=== PATIENT | female | born 1945 | race Caucasian/White ===

== ENCOUNTER → 2016-11-05 | Outpatient (CLI) | payer MEDICARE, OTHER | END | disposition home or self-care (01) | LOC: CFH 08:51 | PROVIDERS: ATTEND Nurse Practitioner Primary Care | DX: R05 Cough (principal); E78.2 Mixed hyperlipidemia; E03.9 Hypothyroidism, unspecified; I10 Essential (primary) hypertension; G89.29 Other chronic pain | CPT/HCPCS: 71250 ==

== ENCOUNTER → 2017-06-25 | Outpatient (CLI) | payer MEDICARE, OTHER | END | disposition home or self-care (01) | LOC: WOUND 07:44 | PROVIDERS: ATTEND Internal Medicine Infectious Disease | DX: T81.33XA Disruption of traumatic injury wound repair, initial encounter (principal); E03.9 Hypothyroidism, unspecified; G25.81 Restless legs syndrome; M15.0 Primary generalized (osteo)arthritis; J45.909 Unspecified asthma, uncomplicated; I10 Essential (primary) hypertension; E78.2 Mixed hyperlipidemia; G89.29 Other chronic pain; Y92.89 Other specified places as the place of occurrence of the external cause; Y83.8 Other surgical procedures as the cause of abnormal reaction of the patient, or of later complication, without mention of misadventure at the time of the procedure | CPT/HCPCS: G0463; WOU0463 ==

== ENCOUNTER → 2017-07-02 | Outpatient (CLI) | payer MEDICARE, OTHER | END | disposition home or self-care (01) | LOC: WOUND 08:25 | PROVIDERS: ATTEND Internal Medicine Infectious Disease | DX: T81.31XD Disruption of external operation (surgical) wound, not elsewhere classified, subsequent encounter (principal); E03.9 Hypothyroidism, unspecified; G25.81 Restless legs syndrome; M15.0 Primary generalized (osteo)arthritis; I10 Essential (primary) hypertension; E78.2 Mixed hyperlipidemia; G89.29 Other chronic pain; J45.909 Unspecified asthma, uncomplicated; Y83.8 Other surgical procedures as the cause of abnormal reaction of the patient, or of later complication, without mention of misadventure at the time of the procedure | CPT/HCPCS: 15275; Q4132 ==

== ENCOUNTER → 2017-07-16 | Outpatient (CLI) | payer MEDICARE, OTHER | END | disposition home or self-care (01) | LOC: WOUND 09:00 | PROVIDERS: ATTEND Nurse Practitioner Family | DX: T81.31XD Disruption of external operation (surgical) wound, not elsewhere classified, subsequent encounter (principal); E03.9 Hypothyroidism, unspecified; G25.81 Restless legs syndrome; M15.0 Primary generalized (osteo)arthritis; D83.2 Common variable immunodeficiency with autoantibodies to B- or T-cells; E78.2 Mixed hyperlipidemia; G89.29 Other chronic pain; J45.909 Unspecified asthma, uncomplicated; I10 Essential (primary) hypertension; Y83.8 Other surgical procedures as the cause of abnormal reaction of the patient, or of later complication, without mention of misadventure at the time of the procedure | CPT/HCPCS: 15275; Q4132 ==

== ENCOUNTER → 2017-07-30 | Outpatient (CLI) | payer MEDICARE, OTHER | END | disposition home or self-care (01) | LOC: WOUND 08:47 | PROVIDERS: ATTEND Internal Medicine Infectious Disease | DX: T86.828 Other complications of skin graft (allograft) (autograft) (principal); D83.2 Common variable immunodeficiency with autoantibodies to B- or T-cells; E03.9 Hypothyroidism, unspecified; E78.2 Mixed hyperlipidemia; G25.81 Restless legs syndrome; G89.29 Other chronic pain; I10 Essential (primary) hypertension; J45.909 Unspecified asthma, uncomplicated; M15.0 Primary generalized (osteo)arthritis; Z98.49 Cataract extraction status, unspecified eye; Z90.49 Acquired absence of other specified parts of digestive tract; Z87.891 Personal history of nicotine dependence; Y83.2 Surgical operation with anastomosis, bypass or graft as the cause of abnormal reaction of the patient, or of later complication, without mention of misadventure at the time of the procedure | CPT/HCPCS: 15275; Q4172 ==

== ENCOUNTER → 2017-08-06 | Outpatient (CLI) | payer MEDICARE, OTHER | END | disposition home or self-care (01) | LOC: WOUND 13:24 | PROVIDERS: ATTEND Nurse Practitioner Family | DX: T81.31XD Disruption of external operation (surgical) wound, not elsewhere classified, subsequent encounter (principal); E03.9 Hypothyroidism, unspecified; G25.81 Restless legs syndrome; M15.0 Primary generalized (osteo)arthritis; D83.2 Common variable immunodeficiency with autoantibodies to B- or T-cells; I10 Essential (primary) hypertension; E78.2 Mixed hyperlipidemia; G89.29 Other chronic pain; J45.909 Unspecified asthma, uncomplicated; Z87.891 Personal history of nicotine dependence; Z90.49 Acquired absence of other specified parts of digestive tract; Y83.8 Other surgical procedures as the cause of abnormal reaction of the patient, or of later complication, without mention of misadventure at the time of the procedure | CPT/HCPCS: 97597 ==

== ENCOUNTER → 2017-08-13 | Outpatient (CLI) | payer MEDICARE, OTHER | END | disposition home or self-care (01) | LOC: WOUND 13:30 | PROVIDERS: ATTEND Nurse Practitioner Family | DX: T81.31XD Disruption of external operation (surgical) wound, not elsewhere classified, subsequent encounter (principal); D83.2 Common variable immunodeficiency with autoantibodies to B- or T-cells; E03.9 Hypothyroidism, unspecified; E78.2 Mixed hyperlipidemia; G25.81 Restless legs syndrome; G89.29 Other chronic pain; I10 Essential (primary) hypertension; J45.909 Unspecified asthma, uncomplicated; M15.0 Primary generalized (osteo)arthritis; Z98.49 Cataract extraction status, unspecified eye; Z90.49 Acquired absence of other specified parts of digestive tract; Z87.891 Personal history of nicotine dependence; Y83.8 Other surgical procedures as the cause of abnormal reaction of the patient, or of later complication, without mention of misadventure at the time of the procedure | CPT/HCPCS: 97597 ==

== ENCOUNTER → 2017-08-20 | Outpatient (CLI) | payer MEDICARE, OTHER | END | disposition home or self-care (01) | LOC: WOUND 14:00 | PROVIDERS: ATTEND Nurse Practitioner Family | DX: T81.31XD Disruption of external operation (surgical) wound, not elsewhere classified, subsequent encounter (principal); E03.9 Hypothyroidism, unspecified; D80.0 Hereditary hypogammaglobulinemia; G25.81 Restless legs syndrome; M15.0 Primary generalized (osteo)arthritis; E78.2 Mixed hyperlipidemia; G89.29 Other chronic pain; J45.909 Unspecified asthma, uncomplicated; Z87.891 Personal history of nicotine dependence; Z90.49 Acquired absence of other specified parts of digestive tract; Y83.8 Other surgical procedures as the cause of abnormal reaction of the patient, or of later complication, without mention of misadventure at the time of the procedure | CPT/HCPCS: 11043 ==

== ENCOUNTER → 2017-09-03 | Outpatient (CLI) | payer MEDICARE, OTHER | END | disposition home or self-care (01) | LOC: WOUND 10:59 | PROVIDERS: ATTEND Nurse Practitioner Family | DX: T81.31XD Disruption of external operation (surgical) wound, not elsewhere classified, subsequent encounter (principal); E03.9 Hypothyroidism, unspecified; D80.0 Hereditary hypogammaglobulinemia; M15.0 Primary generalized (osteo)arthritis; G25.81 Restless legs syndrome; E78.2 Mixed hyperlipidemia; E78.5 Hyperlipidemia, unspecified; I10 Essential (primary) hypertension; G89.29 Other chronic pain; J45.909 Unspecified asthma, uncomplicated; Z87.891 Personal history of nicotine dependence; Z90.49 Acquired absence of other specified parts of digestive tract; Z98.49 Cataract extraction status, unspecified eye; Y83.8 Other surgical procedures as the cause of abnormal reaction of the patient, or of later complication, without mention of misadventure at the time of the procedure | CPT/HCPCS: G0463; WOU0463 ==

== ENCOUNTER → 2017-09-04 | Outpatient (CLI) | payer MEDICARE, OTHER ==
[~2017-09-04] MED LIST: GADOBUTROL 10 MMOL/10 ML PFS ONE
== END | disposition home or self-care (01) ==
LOC: CFH 09:49
PROVIDERS: ATTEND Nurse Practitioner Family
DX: T81.31XD Disruption of external operation (surgical) wound, not elsewhere classified, subsequent encounter (principal); L98.499 Non-pressure chronic ulcer of skin of other sites with unspecified severity; M79.89 Other specified soft tissue disorders
CPT/HCPCS: 73723; A9585

== ENCOUNTER → 2017-09-09 | Outpatient (CLI) | payer MEDICARE, OTHER | END | disposition home or self-care (01) | LOC: WOUND 13:14 | PROVIDERS: ATTEND Internal Medicine | DX: T81.31XD Disruption of external operation (surgical) wound, not elsewhere classified, subsequent encounter (principal); E03.9 Hypothyroidism, unspecified; D80.0 Hereditary hypogammaglobulinemia; M15.0 Primary generalized (osteo)arthritis; G25.81 Restless legs syndrome; E78.2 Mixed hyperlipidemia; G89.29 Other chronic pain; J45.909 Unspecified asthma, uncomplicated; I10 Essential (primary) hypertension; Z87.891 Personal history of nicotine dependence; Z90.49 Acquired absence of other specified parts of digestive tract; Y83.8 Other surgical procedures as the cause of abnormal reaction of the patient, or of later complication, without mention of misadventure at the time of the procedure | CPT/HCPCS: 97605 ==

== ENCOUNTER → 2017-09-12 | Outpatient (CLI) | payer MEDICARE, OTHER | END | disposition home or self-care (01) | LOC: WOUND 07:40 | PROVIDERS: ATTEND Podiatrist Foot & Ankle Surgery | DX: T81.31XD Disruption of external operation (surgical) wound, not elsewhere classified, subsequent encounter (principal); E03.9 Hypothyroidism, unspecified; D80.0 Hereditary hypogammaglobulinemia; G25.81 Restless legs syndrome; G89.29 Other chronic pain; M15.0 Primary generalized (osteo)arthritis; E78.2 Mixed hyperlipidemia; E78.5 Hyperlipidemia, unspecified; I10 Essential (primary) hypertension; J45.909 Unspecified asthma, uncomplicated; Z87.891 Personal history of nicotine dependence; Z90.49 Acquired absence of other specified parts of digestive tract; Z98.49 Cataract extraction status, unspecified eye; Y83.8 Other surgical procedures as the cause of abnormal reaction of the patient, or of later complication, without mention of misadventure at the time of the procedure | CPT/HCPCS: 97605 ==

== ENCOUNTER → 2017-09-13 | Outpatient (CLI) | payer MEDICARE, OTHER | END | disposition home or self-care (01) | LOC: WOUND 08:01 | PROVIDERS: ATTEND Family Medicine | DX: T81.31XD Disruption of external operation (surgical) wound, not elsewhere classified, subsequent encounter (principal); E03.9 Hypothyroidism, unspecified; D80.0 Hereditary hypogammaglobulinemia; G25.81 Restless legs syndrome; G89.29 Other chronic pain; M15.0 Primary generalized (osteo)arthritis; E78.2 Mixed hyperlipidemia; E78.5 Hyperlipidemia, unspecified; I10 Essential (primary) hypertension; J45.909 Unspecified asthma, uncomplicated; Z87.891 Personal history of nicotine dependence; Z90.49 Acquired absence of other specified parts of digestive tract; Z98.49 Cataract extraction status, unspecified eye; Y83.8 Other surgical procedures as the cause of abnormal reaction of the patient, or of later complication, without mention of misadventure at the time of the procedure | CPT/HCPCS: 97605 ==

== ENCOUNTER → 2017-09-16 | Outpatient (CLI) | payer MEDICARE, OTHER | END | disposition home or self-care (01) | LOC: WOUND 08:00 | PROVIDERS: ATTEND Internal Medicine | DX: T81.31XD Disruption of external operation (surgical) wound, not elsewhere classified, subsequent encounter (principal); E03.9 Hypothyroidism, unspecified; D80.0 Hereditary hypogammaglobulinemia; G25.81 Restless legs syndrome; M15.0 Primary generalized (osteo)arthritis; E78.2 Mixed hyperlipidemia; E78.5 Hyperlipidemia, unspecified; G89.29 Other chronic pain; J45.909 Unspecified asthma, uncomplicated; Z87.891 Personal history of nicotine dependence; Z90.49 Acquired absence of other specified parts of digestive tract; Z98.49 Cataract extraction status, unspecified eye; Y83.8 Other surgical procedures as the cause of abnormal reaction of the patient, or of later complication, without mention of misadventure at the time of the procedure | CPT/HCPCS: 97597 ==

== ENCOUNTER → 2017-09-18 | Outpatient (CLI) | payer MEDICARE, OTHER | END | disposition home or self-care (01) | LOC: WOUND 10:35 | PROVIDERS: ATTEND Internal Medicine | DX: T81.31XD Disruption of external operation (surgical) wound, not elsewhere classified, subsequent encounter (principal); E03.9 Hypothyroidism, unspecified; D80.0 Hereditary hypogammaglobulinemia; G25.81 Restless legs syndrome; G89.29 Other chronic pain; M15.0 Primary generalized (osteo)arthritis; E78.2 Mixed hyperlipidemia; E78.5 Hyperlipidemia, unspecified; I10 Essential (primary) hypertension; J45.909 Unspecified asthma, uncomplicated; Z87.891 Personal history of nicotine dependence; Z90.49 Acquired absence of other specified parts of digestive tract; Z98.49 Cataract extraction status, unspecified eye; Y83.8 Other surgical procedures as the cause of abnormal reaction of the patient, or of later complication, without mention of misadventure at the time of the procedure | CPT/HCPCS: 97605 ==

== ENCOUNTER → 2017-09-20 | Outpatient (CLI) | payer MEDICARE, OTHER | END | disposition home or self-care (01) | LOC: WOUND 07:52 | PROVIDERS: ATTEND Family Medicine | DX: T81.31XD Disruption of external operation (surgical) wound, not elsewhere classified, subsequent encounter (principal); E03.9 Hypothyroidism, unspecified; D80.0 Hereditary hypogammaglobulinemia; E78.2 Mixed hyperlipidemia; G25.81 Restless legs syndrome; G89.29 Other chronic pain; M15.0 Primary generalized (osteo)arthritis; E78.5 Hyperlipidemia, unspecified; J45.909 Unspecified asthma, uncomplicated; I10 Essential (primary) hypertension; Z87.891 Personal history of nicotine dependence; Z90.49 Acquired absence of other specified parts of digestive tract; Z98.49 Cataract extraction status, unspecified eye; Y83.8 Other surgical procedures as the cause of abnormal reaction of the patient, or of later complication, without mention of misadventure at the time of the procedure | CPT/HCPCS: G0463; WOU0463 ==

== ENCOUNTER → 2017-09-23 | Outpatient (CLI) | payer MEDICARE, OTHER | END | disposition home or self-care (01) | LOC: WOUND 15:04 | PROVIDERS: ATTEND Internal Medicine | DX: T81.31XD Disruption of external operation (surgical) wound, not elsewhere classified, subsequent encounter (principal); E03.9 Hypothyroidism, unspecified; D80.0 Hereditary hypogammaglobulinemia; G25.81 Restless legs syndrome; G89.29 Other chronic pain; M15.0 Primary generalized (osteo)arthritis; E78.2 Mixed hyperlipidemia; I10 Essential (primary) hypertension; J45.909 Unspecified asthma, uncomplicated; Z87.891 Personal history of nicotine dependence; Z90.49 Acquired absence of other specified parts of digestive tract; Z98.49 Cataract extraction status, unspecified eye; Y83.8 Other surgical procedures as the cause of abnormal reaction of the patient, or of later complication, without mention of misadventure at the time of the procedure | CPT/HCPCS: G0463; WOU0463 ==

== ENCOUNTER → 2017-09-30 | Outpatient (CLI) | payer MEDICARE, OTHER | END | disposition home or self-care (01) | LOC: WOUND 13:03 | PROVIDERS: ATTEND Internal Medicine | DX: T81.31XD Disruption of external operation (surgical) wound, not elsewhere classified, subsequent encounter (principal); E03.9 Hypothyroidism, unspecified; D80.0 Hereditary hypogammaglobulinemia; M15.0 Primary generalized (osteo)arthritis; G25.81 Restless legs syndrome; G89.29 Other chronic pain; E78.2 Mixed hyperlipidemia; I10 Essential (primary) hypertension; J45.909 Unspecified asthma, uncomplicated; Z87.891 Personal history of nicotine dependence; Z90.49 Acquired absence of other specified parts of digestive tract; Y83.8 Other surgical procedures as the cause of abnormal reaction of the patient, or of later complication, without mention of misadventure at the time of the procedure | CPT/HCPCS: 11042 ==

== ENCOUNTER → 2017-10-07 | Outpatient (CLI) | payer MEDICARE, OTHER | END | disposition home or self-care (01) | LOC: WOUND 12:45 | PROVIDERS: ATTEND Internal Medicine | DX: T81.31XD Disruption of external operation (surgical) wound, not elsewhere classified, subsequent encounter (principal); E03.9 Hypothyroidism, unspecified; D80.0 Hereditary hypogammaglobulinemia; M15.0 Primary generalized (osteo)arthritis; G25.81 Restless legs syndrome; G89.29 Other chronic pain; E78.2 Mixed hyperlipidemia; I10 Essential (primary) hypertension; J45.909 Unspecified asthma, uncomplicated; Z87.891 Personal history of nicotine dependence; Z90.49 Acquired absence of other specified parts of digestive tract; Y83.8 Other surgical procedures as the cause of abnormal reaction of the patient, or of later complication, without mention of misadventure at the time of the procedure | CPT/HCPCS: 97597 ==

== ENCOUNTER → 2017-10-14 | Outpatient (CLI) | payer MEDICARE, OTHER | END | disposition home or self-care (01) | LOC: WOUND 15:01 | PROVIDERS: ATTEND Internal Medicine | DX: T81.31XD Disruption of external operation (surgical) wound, not elsewhere classified, subsequent encounter (principal); E03.9 Hypothyroidism, unspecified; D80.0 Hereditary hypogammaglobulinemia; M15.0 Primary generalized (osteo)arthritis; G25.81 Restless legs syndrome; G89.29 Other chronic pain; E78.2 Mixed hyperlipidemia; I10 Essential (primary) hypertension; J45.909 Unspecified asthma, uncomplicated; Z87.891 Personal history of nicotine dependence; Z90.49 Acquired absence of other specified parts of digestive tract; Y83.8 Other surgical procedures as the cause of abnormal reaction of the patient, or of later complication, without mention of misadventure at the time of the procedure | CPT/HCPCS: 97597 ==

== ENCOUNTER → 2017-10-21 | Outpatient (CLI) | payer MEDICARE, OTHER | END | disposition home or self-care (01) | LOC: WOUND 14:04 | PROVIDERS: ATTEND Internal Medicine | DX: T81.31XD Disruption of external operation (surgical) wound, not elsewhere classified, subsequent encounter (principal); E03.9 Hypothyroidism, unspecified; D80.0 Hereditary hypogammaglobulinemia; M15.0 Primary generalized (osteo)arthritis; G25.81 Restless legs syndrome; G89.29 Other chronic pain; E78.2 Mixed hyperlipidemia; I10 Essential (primary) hypertension; J45.909 Unspecified asthma, uncomplicated; Z87.891 Personal history of nicotine dependence; Z90.49 Acquired absence of other specified parts of digestive tract; Y83.8 Other surgical procedures as the cause of abnormal reaction of the patient, or of later complication, without mention of misadventure at the time of the procedure | CPT/HCPCS: 15275; Q4132; 15271 ==

== ENCOUNTER → 2017-11-06 | Outpatient (CLI) | payer MEDICARE, OTHER | END | disposition home or self-care (01) | LOC: WOUND 09:04 | PROVIDERS: ATTEND Internal Medicine | DX: T81.31XD Disruption of external operation (surgical) wound, not elsewhere classified, subsequent encounter (principal); E03.9 Hypothyroidism, unspecified; D80.0 Hereditary hypogammaglobulinemia; M15.0 Primary generalized (osteo)arthritis; G25.81 Restless legs syndrome; E78.5 Hyperlipidemia, unspecified; E55.9 Vitamin D deficiency, unspecified; J45.909 Unspecified asthma, uncomplicated; Z87.891 Personal history of nicotine dependence; Y83.8 Other surgical procedures as the cause of abnormal reaction of the patient, or of later complication, without mention of misadventure at the time of the procedure | CPT/HCPCS: G0463; WOU0463 ==

== ENCOUNTER → 2017-11-13 | Outpatient (CLI) | payer MEDICARE, OTHER | END | disposition home or self-care (01) | LOC: WOUND 13:31 | PROVIDERS: ATTEND Internal Medicine | DX: T81.89XD Other complications of procedures, not elsewhere classified, subsequent encounter (principal); I10 Essential (primary) hypertension; E03.9 Hypothyroidism, unspecified; D80.0 Hereditary hypogammaglobulinemia; M15.0 Primary generalized (osteo)arthritis; G25.81 Restless legs syndrome; E55.9 Vitamin D deficiency, unspecified; E78.2 Mixed hyperlipidemia; G89.29 Other chronic pain; J45.909 Unspecified asthma, uncomplicated; Z90.49 Acquired absence of other specified parts of digestive tract; Z87.891 Personal history of nicotine dependence; Y83.8 Other surgical procedures as the cause of abnormal reaction of the patient, or of later complication, without mention of misadventure at the time of the procedure | CPT/HCPCS: 97597 ==

== ENCOUNTER → 2017-11-18 | Outpatient (CLI) | payer MEDICARE, OTHER | END | disposition home or self-care (01) | LOC: WOUND 13:10 | PROVIDERS: ATTEND Internal Medicine | DX: T81.89XD Other complications of procedures, not elsewhere classified, subsequent encounter (principal); E78.5 Hyperlipidemia, unspecified; E55.9 Vitamin D deficiency, unspecified; E03.9 Hypothyroidism, unspecified; J45.909 Unspecified asthma, uncomplicated; M19.90 Unspecified osteoarthritis, unspecified site; Z87.891 Personal history of nicotine dependence; Y83.8 Other surgical procedures as the cause of abnormal reaction of the patient, or of later complication, without mention of misadventure at the time of the procedure | CPT/HCPCS: 97597 ==

== ENCOUNTER → 2017-11-29 | Outpatient (CLI) | payer MEDICARE, OTHER | END | disposition home or self-care (01) | LOC: WOUND 09:30 | PROVIDERS: ATTEND Family Medicine | DX: T81.31XD Disruption of external operation (surgical) wound, not elsewhere classified, subsequent encounter (principal); G25.81 Restless legs syndrome; F80.0 Phonological disorder; M15.0 Primary generalized (osteo)arthritis; I10 Essential (primary) hypertension; G89.29 Other chronic pain; E78.2 Mixed hyperlipidemia; E03.9 Hypothyroidism, unspecified; J45.909 Unspecified asthma, uncomplicated; Z87.891 Personal history of nicotine dependence; Y83.8 Other surgical procedures as the cause of abnormal reaction of the patient, or of later complication, without mention of misadventure at the time of the procedure | CPT/HCPCS: 97597 ==

== ENCOUNTER → 2017-12-06 | Outpatient (CLI) | payer MEDICARE, OTHER | END | disposition home or self-care (01) | LOC: WOUND 09:40 | PROVIDERS: ATTEND Family Medicine | DX: T81.31XD Disruption of external operation (surgical) wound, not elsewhere classified, subsequent encounter (principal); G25.81 Restless legs syndrome; M15.0 Primary generalized (osteo)arthritis; I10 Essential (primary) hypertension; D80.0 Hereditary hypogammaglobulinemia; G89.29 Other chronic pain; E78.2 Mixed hyperlipidemia; E03.9 Hypothyroidism, unspecified; J45.909 Unspecified asthma, uncomplicated; F80.0 Phonological disorder; Z87.891 Personal history of nicotine dependence; Z90.49 Acquired absence of other specified parts of digestive tract; Y83.8 Other surgical procedures as the cause of abnormal reaction of the patient, or of later complication, without mention of misadventure at the time of the procedure | CPT/HCPCS: 97597 ==

== ENCOUNTER → 2017-12-11 | Outpatient (CLI) | payer MEDICARE, OTHER | END | disposition home or self-care (01) | LOC: WOUND 14:46 | PROVIDERS: ATTEND Internal Medicine | DX: T81.31XD Disruption of external operation (surgical) wound, not elsewhere classified, subsequent encounter (principal); D80.0 Hereditary hypogammaglobulinemia; I10 Essential (primary) hypertension; G89.29 Other chronic pain; G25.81 Restless legs syndrome; E78.2 Mixed hyperlipidemia; E03.9 Hypothyroidism, unspecified; M15.0 Primary generalized (osteo)arthritis; J45.909 Unspecified asthma, uncomplicated; Z90.49 Acquired absence of other specified parts of digestive tract; Z87.891 Personal history of nicotine dependence; Y83.8 Other surgical procedures as the cause of abnormal reaction of the patient, or of later complication, without mention of misadventure at the time of the procedure | CPT/HCPCS: 97597 ==

== ENCOUNTER → 2017-12-17 | Outpatient (CLI) | payer MEDICARE, OTHER | END | disposition home or self-care (01) | LOC: WOUND 10:58 | PROVIDERS: ATTEND Internal Medicine Infectious Disease | DX: T81.31XD Disruption of external operation (surgical) wound, not elsewhere classified, subsequent encounter (principal); E03.9 Hypothyroidism, unspecified; D80.0 Hereditary hypogammaglobulinemia; G25.81 Restless legs syndrome; M15.0 Primary generalized (osteo)arthritis; I10 Essential (primary) hypertension; E78.2 Mixed hyperlipidemia; G89.29 Other chronic pain; J45.909 Unspecified asthma, uncomplicated; Z87.891 Personal history of nicotine dependence; Z90.49 Acquired absence of other specified parts of digestive tract; Y83.8 Other surgical procedures as the cause of abnormal reaction of the patient, or of later complication, without mention of misadventure at the time of the procedure | CPT/HCPCS: 97597 ==

== ENCOUNTER → 2017-12-24 | Outpatient (CLI) | payer MEDICARE, OTHER | END | disposition home or self-care (01) | LOC: WOUND 13:49 | PROVIDERS: ATTEND Nurse Practitioner Family | DX: T81.33XD Disruption of traumatic injury wound repair, subsequent encounter (principal); E03.9 Hypothyroidism, unspecified; D80.0 Hereditary hypogammaglobulinemia; G25.81 Restless legs syndrome; M15.0 Primary generalized (osteo)arthritis; I10 Essential (primary) hypertension; E78.2 Mixed hyperlipidemia; G89.29 Other chronic pain; J45.909 Unspecified asthma, uncomplicated; Z87.891 Personal history of nicotine dependence; Z90.49 Acquired absence of other specified parts of digestive tract; Y83.8 Other surgical procedures as the cause of abnormal reaction of the patient, or of later complication, without mention of misadventure at the time of the procedure | CPT/HCPCS: 97597 ==

== ENCOUNTER → 2017-12-30 | Outpatient (CLI) | payer MEDICARE, OTHER | END | disposition home or self-care (01) | LOC: WOUND 09:38 | PROVIDERS: ATTEND Internal Medicine Cardiovascular Disease | DX: T81.31XD Disruption of external operation (surgical) wound, not elsewhere classified, subsequent encounter (principal); E03.9 Hypothyroidism, unspecified; D80.0 Hereditary hypogammaglobulinemia; G25.81 Restless legs syndrome; M15.0 Primary generalized (osteo)arthritis; E78.5 Hyperlipidemia, unspecified; E55.9 Vitamin D deficiency, unspecified; J45.909 Unspecified asthma, uncomplicated; I10 Essential (primary) hypertension; E78.2 Mixed hyperlipidemia; G89.29 Other chronic pain; Z87.891 Personal history of nicotine dependence; Z90.49 Acquired absence of other specified parts of digestive tract; Y83.8 Other surgical procedures as the cause of abnormal reaction of the patient, or of later complication, without mention of misadventure at the time of the procedure | CPT/HCPCS: G0463; WOU0463 ==

== ENCOUNTER → 2018-01-06 | Outpatient (CLI) | payer MEDICARE, OTHER | END | disposition home or self-care (01) | LOC: WOUND 09:22 | PROVIDERS: ATTEND Family Medicine | DX: T81.33XD Disruption of traumatic injury wound repair, subsequent encounter (principal); D80.0 Hereditary hypogammaglobulinemia; G25.81 Restless legs syndrome; E03.9 Hypothyroidism, unspecified; M15.0 Primary generalized (osteo)arthritis; I10 Essential (primary) hypertension; G89.29 Other chronic pain; E78.2 Mixed hyperlipidemia; J45.909 Unspecified asthma, uncomplicated; Z87.891 Personal history of nicotine dependence; Z90.49 Acquired absence of other specified parts of digestive tract; Y83.8 Other surgical procedures as the cause of abnormal reaction of the patient, or of later complication, without mention of misadventure at the time of the procedure | CPT/HCPCS: G0463; WOU0463 ==

== ENCOUNTER → 2018-01-13 | Outpatient (CLI) | payer MEDICARE, OTHER | END | disposition home or self-care (01) | LOC: WOUND 08:48 | PROVIDERS: ATTEND Internal Medicine | DX: T81.31XA Disruption of external operation (surgical) wound, not elsewhere classified, initial encounter (principal); I10 Essential (primary) hypertension; E78.2 Mixed hyperlipidemia; G89.29 Other chronic pain; E03.9 Hypothyroidism, unspecified; M15.0 Primary generalized (osteo)arthritis; G25.81 Restless legs syndrome; J45.909 Unspecified asthma, uncomplicated; D80.0 Hereditary hypogammaglobulinemia; Z90.710 Acquired absence of both cervix and uterus; Z87.891 Personal history of nicotine dependence; Y83.8 Other surgical procedures as the cause of abnormal reaction of the patient, or of later complication, without mention of misadventure at the time of the procedure | CPT/HCPCS: 97597 ==

== ENCOUNTER → 2018-01-27 | Outpatient (CLI) | payer MEDICARE, OTHER | END | disposition home or self-care (01) | LOC: WOUND 08:25 | PROVIDERS: ATTEND Internal Medicine | DX: T81.31XD Disruption of external operation (surgical) wound, not elsewhere classified, subsequent encounter (principal); D80.0 Hereditary hypogammaglobulinemia; G25.81 Restless legs syndrome; M15.0 Primary generalized (osteo)arthritis; G89.29 Other chronic pain; E78.2 Mixed hyperlipidemia; I10 Essential (primary) hypertension; E78.5 Hyperlipidemia, unspecified; E03.9 Hypothyroidism, unspecified; J45.909 Unspecified asthma, uncomplicated; Z90.49 Acquired absence of other specified parts of digestive tract; Z87.891 Personal history of nicotine dependence; Z90.710 Acquired absence of both cervix and uterus; Y83.8 Other surgical procedures as the cause of abnormal reaction of the patient, or of later complication, without mention of misadventure at the time of the procedure | CPT/HCPCS: 97597 ==

== ENCOUNTER → 2018-02-12 | Outpatient (CLI) | payer MEDICARE, OTHER | END | disposition home or self-care (01) | LOC: WOUND 09:11 | PROVIDERS: ATTEND Internal Medicine | DX: T81.33XD Disruption of traumatic injury wound repair, subsequent encounter (principal); D80.0 Hereditary hypogammaglobulinemia; I10 Essential (primary) hypertension; G25.81 Restless legs syndrome; M15.0 Primary generalized (osteo)arthritis; E03.9 Hypothyroidism, unspecified; E78.2 Mixed hyperlipidemia; G89.29 Other chronic pain; J45.909 Unspecified asthma, uncomplicated; Z87.891 Personal history of nicotine dependence; Z90.710 Acquired absence of both cervix and uterus; Z90.49 Acquired absence of other specified parts of digestive tract; Y83.8 Other surgical procedures as the cause of abnormal reaction of the patient, or of later complication, without mention of misadventure at the time of the procedure | CPT/HCPCS: 97597 ==

== ENCOUNTER → 2018-02-21 | Outpatient (CLI) | payer MEDICARE, OTHER | END | disposition home or self-care (01) | LOC: CFH 09:06 | PROVIDERS: ATTEND Nurse Practitioner Primary Care | DX: J32.9 Chronic sinusitis, unspecified (principal); E78.2 Mixed hyperlipidemia; E55.9 Vitamin D deficiency, unspecified; R53.83 Other fatigue; I10 Essential (primary) hypertension; L43.8 Other lichen planus; J45.20 Mild intermittent asthma, uncomplicated; R01.1 Cardiac murmur, unspecified; R76.8 Other specified abnormal immunological findings in serum; R05 Cough; Z79.899 Other long term (current) drug therapy | CPT/HCPCS: 70486 ==

== ENCOUNTER → 2018-02-26 | Outpatient (CLI) | payer MEDICARE, OTHER | END | disposition home or self-care (01) | LOC: WOUND 13:45 | PROVIDERS: ATTEND Internal Medicine | DX: T81.33XD Disruption of traumatic injury wound repair, subsequent encounter (principal); E03.9 Hypothyroidism, unspecified; D80.0 Hereditary hypogammaglobulinemia; G25.81 Restless legs syndrome; I10 Essential (primary) hypertension; E78.2 Mixed hyperlipidemia; G89.29 Other chronic pain; J32.8 Other chronic sinusitis; M15.0 Primary generalized (osteo)arthritis; E78.5 Hyperlipidemia, unspecified; J45.909 Unspecified asthma, uncomplicated; J45.20 Mild intermittent asthma, uncomplicated; Z87.891 Personal history of nicotine dependence; Z90.710 Acquired absence of both cervix and uterus; Z90.49 Acquired absence of other specified parts of digestive tract; Y83.8 Other surgical procedures as the cause of abnormal reaction of the patient, or of later complication, without mention of misadventure at the time of the procedure | CPT/HCPCS: 97597 ==

== ENCOUNTER → 2018-03-10 | Outpatient (CLI) | payer MEDICARE, OTHER | END | disposition home or self-care (01) | LOC: WOUND 13:44 | PROVIDERS: ATTEND Internal Medicine | DX: T81.33XD Disruption of traumatic injury wound repair, subsequent encounter (principal); T81.89XD Other complications of procedures, not elsewhere classified, subsequent encounter; E03.9 Hypothyroidism, unspecified; D80.0 Hereditary hypogammaglobulinemia; G25.81 Restless legs syndrome; I10 Essential (primary) hypertension; E78.2 Mixed hyperlipidemia; G89.29 Other chronic pain; M15.0 Primary generalized (osteo)arthritis; J45.909 Unspecified asthma, uncomplicated; J45.20 Mild intermittent asthma, uncomplicated; Z87.891 Personal history of nicotine dependence; Z90.710 Acquired absence of both cervix and uterus; Z90.49 Acquired absence of other specified parts of digestive tract; Z79.899 Other long term (current) drug therapy; Y83.8 Other surgical procedures as the cause of abnormal reaction of the patient, or of later complication, without mention of misadventure at the time of the procedure | CPT/HCPCS: 97597 ==

== ENCOUNTER 2018-03-24 09:00 | Outpatient (CLI) | payer MEDICARE, OTHER | END 2018-03-24 23:59 | disposition home or self-care (01) | LOC: WOUND 09:00 | PROVIDERS: ATTEND Internal Medicine | DX: T81.33XD Disruption of traumatic injury wound repair, subsequent encounter (principal); E03.9 Hypothyroidism, unspecified; D80.0 Hereditary hypogammaglobulinemia; G25.81 Restless legs syndrome; I10 Essential (primary) hypertension; E78.2 Mixed hyperlipidemia; G89.29 Other chronic pain; M15.0 Primary generalized (osteo)arthritis; J45.909 Unspecified asthma, uncomplicated; J45.20 Mild intermittent asthma, uncomplicated; Z87.891 Personal history of nicotine dependence; Z90.710 Acquired absence of both cervix and uterus; Z90.49 Acquired absence of other specified parts of digestive tract; Z79.899 Other long term (current) drug therapy; Y83.8 Other surgical procedures as the cause of abnormal reaction of the patient, or of later complication, without mention of misadventure at the time of the procedure | CPT/HCPCS: G0463 ==